=== PATIENT | male | born 2000 | race American Indian/Alaskan Native ===

== ENCOUNTER 2018-06-14 07:15 | Emergency (ER) | payer MEDICAID, OTHER ==
[2018-06-14 07:23] VITALS: BP 127/78
[2018-06-14] MEDS ORDERED: ZITHROMAX PO ONE (08:36)
[2018-06-14] MEDS ORDERED: XYLOCAINE 1% MPF 5 mL INFILTRATI ONE (08:37)
[2018-06-14] MEDS ORDERED: ROCEPHIN IM ONE (08:37)
--- NOTE | 2018-06-14 08:39 | Emergency Department Report ---
ED Dysuria HPI - HPI Chief Complaint: Urogenital-Male Stated Complaint: PENIS DISCHARGE Time Seen by Provider: 06/14/18 08:36 Duration: Today Symptoms: Dysuria: No, Frequency: No, Suprapubic Pain: No, Flank Pain: No, Feve r: No, Hematuria: No, Abdominal Pain: No, Previous UTI's: No Other History: pt comes to er with a known exposure to chlamydia ED Review of Systems ROS: Stated complaint: PENIS DISCHARGE Other details as noted in HPI Comment: All other systems reviewed and negative ED Past Medical Hx - Past Medical History Previous Medical History?: No - Surgical History Past Surgical History?: No - Social History Smoking Status: Never Smoker Substance Use Type: Marijuana - Medications Home Medications: Home Medications Medication Instructions Recorded Confirmed Last Taken Type Amoxicillin [Amoxicillin TAB] 875 mg PO BID #20 tablet 03/27/14 Unknown Rx Antipyrine/Benzocaine/Glycerin 2 drops AU Q8HR #10 ml 03/27/14 Unknown Rx [Auralgan] Fluticasone [Flonase] 1 spray NS QDAY #1 bottle 03/27/14 Unknown Rx Dysuria Exam - Exam General: Vital signs noted. No distress. Alert and acting appropriately. Exam: Yes Moist Mucous Membranes, No CVA Tenderness, No Abdominal Tenderness, No Rigidity or Guarding ED Course Vital Signs 06/14/18 07:22 Temperature 98 F Pulse Rate 72 Respiratory 16 Rate Blood Pressure 127/78 O2 Sat by Pulse 99 Oximetry ED Medical Decision Making - Medical Decision Making known exposure treat with azithromycin and rocephin IM Critical care attestation.: If time is entered above; I have spent that time in minutes in the direct care of this critically ill patient, excluding procedure time. ED Disposition Clinical Impression: STI (sexually transmitted infection) Disposition: DC-01 TO HOME OR SELFCARE Is pt being admited?: No Does the pt Need Aspirin: No Condition: Stable Instructions: Safe Sex (ED) Referrals: SHRADDHA PONCE MD [Primary Care Provider] - 3-5 Days Time of Disposition: 08:38
== END 2018-06-14 08:53 | disposition home or self-care (01) ==
LOC: ED 07:15
DX: A64 Unspecified sexually transmitted disease (principal); F12.10 Cannabis abuse, uncomplicated; Z53.21 Procedure and treatment not carried out due to patient leaving prior to being seen by health care provider
CPT/HCPCS: 96372; 99282; J0696

== ENCOUNTER 2018-07-01 11:46 | Emergency (ER) | payer MEDICAID, OTHER ==
[2018-07-01 12:03] VITALS: BP 123/62
--- NOTE | 2018-07-01 12:11 | Emergency Department Report ---
Blank Doc - Documentation Documentation: This is a 17-year-old male that presents with penile shaft pain only during er ection. Denies any urinary symptoms or penile discharge. This initial assessment/diagnostic orders/clinical plan/treatment(s) is/are subject to change based on patient's health status, clinical progression and re- assessment by fellow clinical providers in the ED. Further treatment and workup at subsequent clinical providers discretion. Patient/guardians urged not to elope from the ED as their condition may be serious if not clinically assessed and managed. Initial orders include: 1- Patient sent to [facility] for further evaluation and treatment 2- UA
[2018-07-01 12:39] LABS: Bilirubin,Urine NEG (Negative); Blood,Urine NEG (Negative); Color,Urine Yellow (Yellow); Protein,Urine <15 mg/dL mg/dL (Negative); RBC,Urine < 1.0 /HPF (0.0-6.0); Urobilinogen,Urine < 2.0 mg/dL (<2.0)
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
== END 2018-07-01 13:14 | disposition home or self-care (01) ==
LOC: ED 11:46
DX: N48.89 Other specified disorders of penis (principal); F12.10 Cannabis abuse, uncomplicated
CPT/HCPCS: 81001; 87591

== ENCOUNTER 2018-09-20 20:13 | Emergency (ER) | payer OTHER ==
[2018-09-20 20:20] VITALS: BP 122/73
--- NOTE | 2018-09-20 20:43 | Emergency Department Report ---
Blank Doc - Documentation Documentation: This is a 18-year-old male that presents with dysuria and lower abdominal pain. Denies being sexually active or penile discharge. This initial assessment/diagnostic orders/clinical plan/treatment(s) is/are subject to change based on patient's health status, clinical progression and re- assessment by fellow clinical providers in the ED. Further treatment and workup at subsequent clinical providers discretion. Patient/guardians urged not to elope from the ED as their condition may be serious if not clinically assessed and managed. Initial orders include: 1- Patient sent to [facility] for further evaluation and treatment 2- UA
[2018-09-20 21:20] LABS: Bilirubin,Urine NEG (Negative); Blood,Urine NEG (Negative); Color,Urine Yellow (Yellow); Mucus,Urine FEW /HPF; Protein,Urine <15 mg/dL mg/dL (Negative)
--- NOTE | 2018-09-20 22:12 | Emergency Department Report ---
ED Male HPI - General Chief complaint: Urogenital-Male Stated complaint: ABD PAIN Time Seen by Provider: 09/20/18 20:42 Source: patient Mode of arrival: Ambulatory Limitations: No Limitations - History of Present Illness Initial comments: This is a 18-year-old male that presents with dysuria and lower abdominal pain. Denies being sexually active or penile discharge. testicular pain states last contact 2 months ago there is no rash no lesions no open sore. MD Complaint: dysuria Onset/Timin -: days(s) Location: penis Radiation: none Severity: moderate Severity scale (0 -10): 4 Quality: burning Consistency: intermittent Improves with: none Worsens with: urination dysuria. denies: discharge, swelling, mass, rash, urinary retention, blood in urine, fever, nausea/vomiting, incontinence - Related Data Sexually active: No Previous Rx's Medication Instructions Recorded Last Taken Type Amoxicillin [Amoxicillin TAB] 875 mg PO BID #20 tablet 03/27/14 Unknown Rx Antipyrine/Benzocaine/Glycerin 2 drops AU Q8HR #10 ml 03/27/14 Unknown Rx [Auralgan] Fluticasone [Flonase] 1 spray NS QDAY #1 bottle 03/27/14 Unknown Rx Ibuprofen [Motrin] 800 mg PO Q8HR PRN #20 tablet 07/01/18 Unknown Rx Doxycycline Monohydrate 100 mg PO BID 10 Days #20 capsule 09/20/18 Unknown Rx Allergies Allergy/AdvReac Type Severity Reaction Status Date / Time No Known Allergies Allergy Verified 09/20/18 20:18 ED Review of Systems ROS: Stated complaint: ABD PAIN Other details as noted in HPI Constitutional: denies: chills, fever Eyes: denies: eye pain, eye discharge, vision change ENT: denies: ear pain, throat pain Respiratory: denies: cough, shortness of breath, wheezing Cardiovascular: denies: chest pain, palpitations Endocrine: no symptoms reported Gastrointestinal: abdominal pain (superpubic ). denies: nausea, diarrhea Genitourinary: frequency. denies: urgency, dysuria, hematuria, discharge, testicular pain, testicular mass Musculoskeletal: denies: back pain, joint swelling, arthralgia Skin: denies: rash, lesions Neurological: denies: headache, weakness, paresthesias Psychiatric: denies: anxiety, depression Hematological/Lymphatic: denies: easy bleeding, easy bruising ED Past Medical Hx - Past Medical History Previous Medical History?: No - Surgical History Past Surgical History?: No - Social History Smoking Status: Never Smoker Substance Use Type: Marijuana - Medications Home Medications: Home Medications Medication Instructions Recorded Confirmed Last Taken Type Amoxicillin [Amoxicillin TAB] 875 mg PO BID #20 tablet 03/27/14 Unknown Rx Antipyrine/Benzocaine/Glycerin 2 drops AU Q8HR #10 ml 03/27/14 Unknown Rx [Auralgan] Fluticasone [Flonase] 1 spray NS QDAY #1 bottle 03/27/14 Unknown Rx Ibuprofen [Motrin] 800 mg PO Q8HR PRN #20 tablet 07/01/18 Unknown Rx Doxycycline Monohydrate 100 mg PO BID 10 Days #20 capsule 09/20/18 Unknown Rx ED Physical Exam - General Limitations: No Limitations General appearance: alert, in no apparent distress - Head Head exam: Present: atraumatic, normocephalic - Eye Eye exam: Present: normal appearance, PERRL, EOMI Pupils: Present: normal accommodation - ENT ENT exam: Present: mucous membranes moist - Neck Neck exam: Present: normal inspection - Respiratory Respiratory exam: Present: normal lung sounds bilaterally. Absent: respiratory distress - Cardiovascular Cardiovascular Exam: Present: regular rate, normal rhythm. Absent: systolic mur mur, diastolic murmur, rubs, gallop - GI/Abdominal GI/Abdominal exam: Present: soft, normal bowel sounds. Absent: distended, tenderness, guarding, rebound, rigid, bruit, hernia - Rectal Rectal exam: Present: deferred - exam: Present: normal inspection, circumcision. Absent: testicular tenderness, urethral discharge, scrotal swelling, vertical testicular lie External exam: Present: normal external exam. Absent: erythema, swelling, lesions, lacerations, ecchymosis, bleeding - Extremities Exam Extremities exam: Present: normal inspection, full ROM, normal capillary refill. Absent: tenderness, pedal edema, calf tenderness - Back Exam Back exam: Present: normal inspection, full ROM. Absent: tenderness, CVA tenderness (R), CVA tenderness (L), muscle spasm, paraspinal tenderness, vertebral tenderness, rash noted - Neurological Exam Neurological exam: Present: alert, oriented X3, CN II-XII intact, normal gait, reflexes normal. Absent: motor sensory deficit - Psychiatric Psychiatric exam: Present: normal affect, normal mood - Skin Skin exam: Present: warm, dry, intact, normal color. Absent: rash ED Course Vital Signs 09/20/18 09/20/18 20:19 20:42 Temperature 98.6 F 98.6 F Pulse Rate 69 69 Respiratory 18 18 Rate Blood Pressure 122/73 Blood Pressure 122/73 [Right] O2 Sat by Pulse 98 98 Oximetry ED Medical Decision Making - Lab Data Lab Results 09/20/18 Range/Units Unknown Urine Color Yellow (Yellow) Urine Turbidity Clear (Clear) Urine pH 7.0 (5.0-7.0) Ur Specific [place] 1.019 (1.003-1.030) Urine Protein <15 mg/dl (Negative) mg/dL Urine Glucose (UA) Neg (Negative) mg/dL Urine Ketones Neg (Negative) mg/dL Urine Blood Neg (Negative) Urine Nitrite Neg (Negative) Urine Bilirubin Neg (Negative) Urine Urobilinogen 2.0 (<2.0) mg/dL Ur Leukocyte Esterase Neg (Negative) Urine WBC (Auto) 1.0 (0.0-6.0) /HPF Urine RBC (Auto) 1.0 (0.0-6.0) /HPF Urine Mucus Few /HPF - Medical Decision Making UA was normal physical exam is normal there is no epididymitis or orchitis is hematuria no hesitation no flow problem no hx of renal stones no blood in urien no cva tenderness however given dysuria in 18 y/o male will treat for urethritis dysuria with doxycycline x 10 days pt will follow up with pcp in 2- 3 days pt verbalized agreement and understanding of discharge plan. Critical care attestation.: If time is entered above; I have spent that time in minutes in the direct care of this critically ill patient, excluding procedure time. ED Disposition Clinical Impression: Urethritis, Dysuria Disposition: TO HOME OR SELFCARE Is pt being admited?: No Does the pt Need Aspirin: No Condition: Stable Instructions: Nonspecific Urethritis in Men (ED), Dysuria (ED) Prescriptions: Doxycycline Monohydrate 100 mg PO BID 10 Days #20 capsule Referrals: [facility] [Outside] - 3-5 Days [facility] [Outside] - 3-5 Days Forms: STI Treatment and Prevention Time of Disposition: 22:17
== END 2018-09-20 22:26 | disposition home or self-care (01) ==
LOC: ED 20:13
DX: N34.2 Other urethritis (principal); F12.90 Cannabis use, unspecified, uncomplicated
CPT/HCPCS: 81001; 87086; 87591; 99283